=== PATIENT | male | born 1970 | race African-American/Black ===

== ENCOUNTER 2017-03-15 07:41 | Observation (INO) | payer OTHER ==
[2017-03-11 15:38] LABS: HEMATOCRIT 43.5 % (40.0-51.0); HEMOGLOBIN 14.9 g/dL (13.6-17.8)
[2017-03-11 15:50] LABS: BUN (BLOOD UREA NITROGEN) 14 MG/DL (6-23); CALCIUM, SERUM 9.4 MG/DL (8.5-10.4); CHLORIDE, SERUM 106 MMOL/L (96-112); CO2 (CARBON DIOXIDE) 27 MMOL/L (24-34); GFR AFRICAN AMERICAN 117 ML/MIN (>=60); GFR NON AFRICAN AMERICAN 101 ML/MIN (>=60); GLUCOSE, SERUM 84 MG/DL (60-99); POTASSIUM, SERUM 4.2 MMOL/L (3.5-5.3); SODIUM, SERUM 140 MMOL/L (135-148)
--- NOTE | ~2017-03-15 | OP ---
Record Of Operation [facility] [address] [place]. [address] NAME: BIJAL WILBURN : 68 STATUS : ADM IN PAT#: [id number] AGE: 46 ADM/REG DATE : 03/15/17 MR#: [id number] REPORT SERV DATE: 03/15/17 DICTATED BY: LUIS DAVILA DATE: 03/15/17 REPORT STATUS : Draft TRANSCRIBED BY: MODL DATE: 03/15/17 DATE OF PROCEDURE: 03/15/2017 PREOPERATIVE DIAGNOSES: Cervical disk disease and stenosis, C4-5 and C5-6; cervical radiculopathy with intractable neck and right arm pain. POSTOPERATIVE DIAGNOSES: Cervical disk disease and stenosis, C4-5 and C5-6; cervical radiculopathy with intractable neck and right arm pain. PROCEDURES: Anterior cervical diskectomy and fusion, C4-5 and C5-6; placement of Medtronic PEEK interbody spacer, C4-5 and C5-6; placement of anterior cervical plate from Medtronic, C4 through C6; allograft bone matrix; neuromonitoring; and operative microscope. SURGEON: Luis Davila DO. ANESTHESIA: General. ESTIMATED BLOOD LOSS: 10 mL. COMPLICATIONS: None. INDICATIONS: The patient is a pleasant 46-year-old with intractable neck and right upper extremity pain with weakness, failed multiple attempts at conservative treatment. After discussion of risks and benefits, elected to proceed with surgical intervention. DESCRIPTION OF PROCEDURE: I identified the patient in the holding area. Consent was obtained. Went to the operating room. Underwent general anesthesia with endotracheal intubation. Prepped and draped in the usual sterile fashion. Operative safety pause was performed, then we proceeded with surgery. An oblique incision was made over the left side of the neck, taken down through the platysma. Dissection carried out down to the anterior aspect of the spine. Longus colli elevated. Self-retaining retractors were placed. Oracle pin was placed and lateral fluoroscopic image was used to verify operative level. Distraction was applied across the C4-C5. Operative microscope was brought in. A knife was used to perform an annulotomy. Free disk material was removed with the pituitary. Anterior osteophytes were removed with the Kerrison. Posterior osteophytes and uncinate processes were taken down with a luis f wilian. Foraminotomies performed with a Kerrison. Endplates were final prepared with curettes, rasp, and a cutting wilian. Trial spacers were implanted, then Medtronic PEEK interbody spacer with allograft bone matrix was placed at C4-C5. This was repeated at C5-C6. Oracle pins were removed. Anterior cervical plate from Medtronic was placed at C4-C6. Screws were placed. Final tightened. Locking mechanism was engaged. Final AP and lateral images were obtained. Irrigation was performed. Hemostasis was achieved. Subplatysmal drain was placed. Layered closure was performed. Sterile dressings were applied. The patient was awoken and extubated, and taken to the recovery room in stable condition. OPERATIVE FINDINGS: C4-6 disk disease and stenosis. No sustained neuromonitoring alerts Record Of Operation [address] [address] NAME: BIJAL WILBURN : 68 STATUS : ADM IN [facility]#: [id number] AGE: 46 ADM/REG DATE : 03/15/17 MR#: [id number] REPORT SERV DATE: 03/15/17 DICTATED BY: LUIS DAVILA DATE: 03/15/17 REPORT STATUS : Draft TRANSCRIBED BY: CHELSEY DATE: 03/15/17 occurred. RODRÍGUEZ/CHELSEY Luis Davila DO / [id number] CC: DO MARIBEL Leija
--- NOTE | ~2017-03-15 | PREOPHP ---
PreOp History and Physical [id number] [place]. [address] NAME: BIJAL WILBURN : 68 STATUS : REG [facility]#: [id number] AGE: 46 ADM/REG DATE : 03/15/17 MR#: [id number] REPORT SERV DATE: 03/15/17 DICTATED BY: LUIS METZ DATE: 03/15/17 REPORT STATUS : Draft TRANSCRIBED BY: CHELSEY DATE: 03/15/17 CHIEF COMPLAINT: Neck pain. HISTORY OF PRESENT ILLNESS: The patient is a pleasant 46-year-old with intractable neck and right upper extremity pain. He has had weakness in the right upper extremity. He has failed multiple attempts at conservative treatment including physical therapy, and medications, activity modification, and has continued intractable pain and neurologic deficit elected to proceed with surgical intervention. REVIEW OF SYSTEMS: He denies chest pain, shortness of breath, and bowel or bladder changes. ALLERGIES: DENIED. HOME MEDICATIONS: Amlodipine, aspirin, cyclobenzaprine, lisinopril and Percocet. FAMILY HISTORY: Noncontributory. PAST MEDICAL HISTORY: Hypertension. PHYSICAL EXAMINATION: VITAL SIGNS: Height is 5 feet 10 inches, weight 240 pounds, BMI 34.6. GENERAL: The patient is healthy appearing. No acute distress. PSYCH: Alert and oriented x3. Normal mood and affect. Gait is within normal limits. Spine decreased cervical motion, positive Spurling's on the right side. NEUROLOGIC: Strength in the upper extremities remains intact with the exception of 4/5 strength for the wrist extensors, finger flexors on the right side. IMAGING: I have reviewed the MRI scan of the cervical spine. He has right-sided C4-C5 and C5-C6 disk herniation with stenosis and nerve root compression. ASSESSMENT: Right side C4 through C6 disk herniation and stenosis, cervical radiculopathy, failed conservative treatment. PLAN: The patient presents today for surgical intervention. Consent was obtained. All questions were answered. He is ready to proceed with surgery. RODRÍGUEZ/CHELSEY Luis Metz, DO / [id number] CC: PreOp History and Physical [address] [address] NAME: BIJAL WILBURN : 68 STATUS : REG [facility] PAT#: [id number] AGE: 46 ADM/REG DATE : 03/15/17 MR#: [id number] REPORT SERV DATE: 03/15/17 DICTATED BY: LUIS METZ DATE: 03/15/17 REPORT STATUS : Draft TRANSCRIBED BY: MODL DATE: 03/15/17 Luis Metz, MARIBEL GORDON
[~2017-03-15 07:41] MED LIST: BIST PO; D.O.S.100 MG PO; LISINOPRIL40 MG PO; NORCO1 TA2 PO; NORV10 PO
[2017-03-16 04:47] LABS: CALCIUM, SERUM 9.8 MG/DL (8.5-10.4); CHLORIDE, SERUM 105 MMOL/L (96-112); CO2 (CARBON DIOXIDE) 27 MMOL/L (24-34); CREATININE 0.82 MG/DL (0.70-1.30); GFR AFRICAN AMERICAN 122 ML/MIN (>=60); GFR NON AFRICAN AMERICAN 105 ML/MIN (>=60); POTASSIUM, SERUM 4.7 MMOL/L (3.5-5.3); SODIUM, SERUM 140 MMOL/L (135-148)
[2017-03-16 04:48] LABS: BUN (BLOOD UREA NITROGEN) 8 MG/DL (6-23); GLUCOSE, SERUM 121 MG/DL (60-99)
[2017-03-16] MEDS ORDERED: FLEX PO (13:34)
[2017-03-16] MEDS ORDERED: PCET PO (13:34)
== END 2017-03-16 16:09 | disposition home or self-care (01) ==
LOC: SDC 07:41 → SDC/OF 13:13 → 3SO 14:10
PROVIDERS: Orthopaedic Surgery
PROC: 0RG20J0 Fusion of 2 or more Cervical Vertebral Joints with Synthetic Substitute, Anterior Approach, Anterior Column, Open Approach (ICD-10-PCS; 2017-03-15)
PROC: 0RG20K0 Fusion of 2 or more Cervical Vertebral Joints with Nonautologous Tissue Substitute, Anterior Approach, Anterior Column, Open Approach (ICD-10-PCS; 2017-03-15)
PROC: 0RB30ZZ Excision of Cervical Vertebral Disc, Open Approach (ICD-10-PCS; principal; 2017-03-15 10:15)
PROC: 0RG20A0 Fusion of 2 or more Cervical Vertebral Joints with Interbody Fusion Device, Anterior Approach, Anterior Column, Open Approach (ICD-10-PCS; 2017-03-15 10:15)
DX: M50.121 Cervical disc disorder at C4-C5 level with radiculopathy (principal); M50.122 Cervical disc disorder at C5-C6 level with radiculopathy; M48.02 Spinal stenosis, cervical region; R20.0 Anesthesia of skin; I10 Essential (primary) hypertension; E66.9 Obesity, unspecified; Z79.899 Other long term (current) drug therapy; Z68.34 Body mass index [BMI] 34.0-34.9, adult; Z79.891 Long term (current) use of opiate analgesic; Z98.890 Other specified postprocedural states
CPT/HCPCS: 80048; 82962; 85014; 85018; 87641; 88304; 88311; 93005; 96374; 96375; 96376; 97116-GP; 97162-GP; A9270-GY; C1713; G0378; J0690; J2250; J2270; J2405; J2710; J3010